=== PATIENT | female | born 1960 | race Caucasian/White ===

== ENCOUNTER 2020-03-30 13:43 | Inpatient (IN) | payer BC, OTHER ==
[2020-03-30] MEDS ORDERED: RSI MEDICATION KIT IV ONE (13:49)
[2020-03-30] MEDS ORDERED: NA CHLORIDE 0.9% 1,000 ML ONE ×2 (13:49→16:47)
[2020-03-30 13:56] LABS: Arterial Blood Carboxyhemoglob 0.9 % (0-1.5); Blood O2 Saturation 99.8 % (92-98.5)
[2020-03-30 14:16] LABS: Absolute Lymphocytes (CBC) 0.6 K/uL (0.7-4.9); Basophils % 0.4 % (0-1.3); Hematocrit 29.4 % (36.0-45.0); Lymphocytes % 6.4 % (15.3-44.8); MPV 7.9 fL (7.6-11.3); RBC Red Blood Cell Count 3.36 M/uL (3.86-4.86)
[2020-03-30 14:21] LABS: Protime INR 1.23
--- NOTE | 2020-03-30 14:33 | RAD REPORT ---
EXAM DESCRIPTION: CT - Head Brain Wo Cont - 03/30/2020 2:26 pm CLINICAL HISTORY: AMS COMPARISON: No comparisons TECHNIQUE: Axial 5 mm thick images of the head were obtained without IV contrast. All CT scans are performed using dose optimization technique as appropriate and may include automated exposure control or mA/KV adjustment according to patient size. FINDINGS: No intracranial hemorrhage, mass, edema or shift of mid-line structures. No acute infarcti on changes seen. No abnormal extra-axial fluid collections. Ventricles are asymmetric as a normal george iant. Mastoid air cells and visualized portions of the paranasal sinuses are clear. No acute bony findings. IMPRESSION: Negative non-contrast CT head examination for acute or significant finding.
--- NOTE | 2020-03-30 14:35 | RAD REPORT ---
EXAM DESCRIPTION: RAD - Chest Single View - 03/30/2020 2:29 pm CLINICAL HISTORY: AMS COMPARISON: June 2010 TECHNIQUE: AP portable chest image was obtained 03/30/2020 2:29 pm . FINDINGS: Lung volumes are low. Retrocardiac left base assessment is very limited. Infiltrate and at electasis cannot be excluded. Perihilar markings are prominent. Peribronchial thickening seen. Assess ment is limited given the very low lung volumes. Heart size is normal. No measurable pleural effusion and no pneumothorax. No acute bony abnormality seen. No acute aortic findings suspected. IMPRESSION: Limited exam shows prominent perihilar interstitial pattern. A viral infiltrate or interstitial edema cannot be excluded. Infiltrate at the left base also cannot be excluded.
[2020-03-30 14:42] LABS: Albumin 2.9 g/dL (3.4-5.0); Bilirubin Direct 0.1 mg/dL (0-0.2); Bilirubin Total 0.3 mg/dL (0.2-1.0); Potassium 3.1 mmol/L (3.5-5.1); Protein, Total 6.3 g/dL (6.4-8.2); Troponin (Emerg Dept Use Only) 0.04 ng/mL (0.0-0.045)
[2020-03-30 14:43] LABS: Platelet Estimate ADEQ; White Blood Cell Scan OK (OK)
[2020-03-30 14:44] LABS: Blood Morphology Comment NOT SEEN (NOT SEEN)
[2020-03-30 15:02] LABS: Barbiturates NEGATIVE (NEGATIVE); Benzodiazepines NEGATIVE (NEGATIVE); Cocaine NEGATIVE (NEGATIVE); METHAMPHETAM NEGATIVE (NEGATIVE); Methadone NEGATIVE (NEGATIVE); Opiates NEGATIVE (NEGATIVE); Phencyclidine NEGATIVE (NEGATIVE); THC Cannibis NEGATIVE (NEGATIVE)
--- NOTE | 2020-03-30 15:45 | EDPHYS ---
Physician Documentation [facility] Name: Michelle Villegas Age: 59 yrs Sex: Female : 1960 Arrival Date: 03/30/2020 Time: 13:45 Bed 3 Private MD: ED Physician Tera Gonzales HPI: 03/30 14:28 This 59 yrs old Female presents to ER via EMS with complaints of Altered rn Mental Status. 14:28 The patient presents with decreased responsiveness. Onset: The symptoms/episode rn began/occurred at an unknown time. 14:29 Possible causes: unknown. Current symptoms: In the emergency department the patient's rn symptoms are unchanged from the initial presentation. It is unknown whether or not the patient has had similar symptoms in the past. Last seen normal last night by , found today unresponsive, laying on full body heating pad, temp 106, tachycardic, not moving extremities, unknown if trauma. Patient opens eyes and mumbles. Given IV fluids and ice packs by EMS, now temp 103. . Historical: - Allergies: 13:58 No Known Allergies; iw - Home Meds: 13:58 Lyrica 150 mg Oral 2 times per day [Active]; cyclobenzaprine 10 mg Oral tab 1 tab 3 iw times per day [Active]; nortriptyline 50 mg Oral cap 1 cap 3 times per day [Active]; Percocet 5-325 mg Oral tab three times a day [Active]; fentanyl 25 mcg/hr Topical pt72 1 patch every 72 hours [Active]; topiramate 100 mg oral tab 2 times per day [Active]; zolpidem 10 mg Oral tab 1 tab once daily [Active]; Zyrtec 10 mg Oral chew 1 tab once daily [Active]; - Immunization history:: Adult Immunizations up to date. - Social history:: Smoking status: unknown. - Family history:: not pertinent. - Hospitalizations: : No recent hospitalization is reported. ROS: 14:29 Unable to obtain ROS due to altered mental status. rn Exam: 14:29 Constitutional: This is a well developed, well nourished patient who is awake, rn somnolent Head/Face: Normocephalic, atraumatic. Eyes: Pupils equal round and reactive to light, no nystagmus Cardiovascular: Tachycardic, regular Respiratory: Tachypneic Abdomen/GI: soft, non-tender Skin: Warm, dry, no cellulitis, + superficial garcia to back torso, back of arms, back of legs. MS/ Extremity: Pulses equal, no cyanosis. Neuro: Awake, follows some commands, difficult to interpret speech, sensation to pain intact and some movement to legs, no purposeful movement in arms. Vital Signs: 13:48 BP 135 / 117; Pulse 114; Resp 28 S; Temp 103.3(TE); Pulse Ox 99% on Non-rebreather mask;iw 13:57 Weight 100 kg; em 16:30 BP 86 / 53; Pulse 88; Resp 18; Temp 98.7(C); Pulse Ox 97% on 2 lpm NC; hb 17:23 BP 103 / 66; Pulse 66; Resp 14; Pulse Ox 95% on 2 lpm NC; hb 18:13 BP 91 / 57; Pulse 80; Resp 15; Pulse Ox 97% on 2 lpm NC; hb 18:51 BP 109 / 70; Pulse 81; Resp 15; Pulse Ox 96% on 2 lpm NC; hb 19:00 BP 103 / 69; Pulse 86; Resp 15 S; Temp 97.7(C); Pulse Ox 100% on 2 lpm NC; rv 19:30 BP 115 / 68; Pulse 80; Resp 14; Temp 97.7(C); Pulse Ox 100% on 2 lpm NC; rv 20:15 BP 99 / 64; Pulse 74; Resp 16; Temp 97.6(C); Pulse Ox 100% on 2 lpm NC; rv [place] Coma Score: 19:00 Eye Response: to pain(2). Verbal Response: inappropriate words(3). Motor Response: rv localizes pain(5). Total: 10. 20:47 Eye Response: to pain(2). Verbal Response: inappropriate words(3). Motor Response: rv localizes pain(5). Total: 10. MDM: 13:46 Patient medically screened. rn 15:42 Differential Diagnosis: CVA, electrolyte abnormality, hypoglycemia, intracranial bleed, rn overdose, seizure, sepsis, TIA, UTI, volume depletion. Data reviewed: vital signs, nurses notes, lab test result(s), EKG, radiologic studies, CT scan, plain films, and as a result, I will admit patient. Counseling: I had a detailed discussion with the patient and/or guardian regarding: the historical points, exam findings, and any diagnostic results supporting the discharge/admit diagnosis, lab results, radiology results, the need for further work-up and treatment in the hospital. Response to treatment: the patient's symptoms have mildly improved after treatment, and as a result, I will admit patient. Admission orders: after a detailed discussion of the patient's condition and case, the admit orders are written by me. ED course: Pt more alert, temperature downtrending, ct head neg, CPK normal, admitted for observation to Dr. Duckworth. Most likely overmedicated and temp 2/2 heating blanket. . 03/30 13:49 Order name: ABG rn 03/30 13:49 Order name: Urine Culture rn 03/30 13:49 Order name: Basic Metabolic Panel; Complete Time: 15: rn 03/30 13:49 Order name: Blood Culture Adult (2) rn 03/30 13:49 Order name: CBC with Diff; Complete Time: 15: rn 03/30 13:49 Order name: CPK; Complete Time: 15: rn 03/30 13:49 Order name: Lactate; Complete Time: 15: rn 03/30 13:49 Order name: LFT's; Complete Time: 15: rn 03/30 13:49 Order name: Lipase; Complete Time: 15:09 rn 03/30 13:49 Order name: Procalcitonin; Complete Time: 15:31 rn 03/30 13:49 Order name: Protime (+inr); Complete Time: 15: rn 03/30 13:49 Order name: Ptt, Activated; Complete Time: 15: rn 03/30 13:49 Order name: Troponin (emerg Dept Use Only); Complete Time: 15: rn 03/30 13:49 Order name: Urine Microscopic Only; Complete Time: 16:32 rn 03/30 13:49 Order name: Chest Single View XRAY; Complete Time: 15:09 rn 03/30 13:49 Order name: Urine Drug Screen; Complete Time: 15:09 rn 03/30 14:44 Order name: CBC Smear Scan; Complete Time: 15:09 EDMS 03/30 15:11 Order name: COVID-19 rn 03/30 15:49 Order name: Urine Dipstick--Ancillary (enter results); Complete Time: 16:32 bd 03/30 16:06 Order name: CBC with Automated Diff EDMS 03/30 16:06 Order name: CBC with Automated Diff EDMS 03/30 16:06 Order name: Comprehensive Metabolic Panel EDMS 03/30 16:06 Order name: Comprehensive Metabolic Panel EDMS 03/30 16:06 Order name: Creatine Phosphokinase EDMS 03/30 16:06 Order name: Creatine Phosphokinase EDMS 03/30 16:06 Order name: Protime (+INR) EDMS 03/30 16:06 Order name: Protime (+INR) EDMS 03/30 16:06 Order name: PTT, Activated Partial Thromb EDMS 03/30 16:06 Order name: PTT, Activated Partial Thromb EDMS 03/30 18:16 Order name: SARS-COV-2 RT PCR; Complete Time: 18:29 EDMS 03/30 13:49 Order name: Accucheck; Complete Time: 14:21 rn 03/30 13:49 Order name: Cardiac monitoring; Complete Time: 14:21 rn 03/30 13:49 Order name: EKG - Nurse/Tech; Complete Time: 18:21 rn 03/30 13:49 Order name: IV Saline Lock - Large Bore; Complete Time: 14:21 rn 03/30 13:49 Order name: Labs collected and sent; Complete Time: 14:21 rn 03/30 13:49 Order name: O2 Per Protocol; Complete Time: 14:21 rn 03/30 13:49 Order name: O2 Sat Monitoring; Complete Time: 14:21 rn 03/30 13:49 Order name: Urine Dipstick-Ancillary (obtain specimen); Complete Time: 15:19 rn 03/30 13:49 Order name: CT Head Brain wo Cont; Complete Time: 15:09 rn 03/30 14:22 Order name: Alcaraz; Complete Time: 14:22 hb 03/30 16:06 Order name: CONS Pharmacy Consult EDNE 03/30 16:06 Order name: CONS Physician Consult EDNE 03/30 16:06 Order name: Regular EDMS Administered Medications: 14:21 Drug: NS 0.9% (30 ml/kg) 30 ml/kg Route: IV; Rate: bolus; Site: right antecubital; hb 15:30 Follow up: Response: No adverse reaction; IV Status: Completed infusion; IV Intake: hb 3000ml 16:40 Drug: NS 0.9% 1000 ml Route: IV; Rate: 1000 ml; Site: right antecubital; em 17:35 Follow up: Response: No adverse reaction; IV Status: Completed infusion; IV Intake: hb 1000ml 16:40 Drug: Rocephin 1 grams Route: IV; Rate: calculated rate; Site: right antecubital; em 17:15 Follow up: Response: No adverse reaction hb Disposition: 15:42 Critical Care:. rn Disposition: 03/30/20 15:44 Hospitalization ordered by Refugio Duckworth for Observation. Preliminary diagnosis are Hyperthermia, Altered mental status, unspecified. - Bed requested for Telemetry/MedSurg (observation). - Status is Observation. jb4 - Condition is Stable. - Problem is new. - Symptoms have improved. Critical care time excluding procedures: 15:42 Critical care time: Bedside Care: 25 minutes, Consultation: 5 minutes, Family rn Intervention: 5 minutes. Total time: 35 minutes Signatures: Dispatcher [employer] Carol Chen Edgar, RN Louisa Mireles RN RN iw Nieto, Roman, MD MD rn Baxter, Heather, RN RN hb Bryson, James, RN RN jb4 Corrections: (The following items were deleted from the chart) 18:36 15:44 Hospitalization Ordered by Refugio Duckworth MD for Observation. Preliminary bd diagnosis is Hyperthermia; Altered mental status, unspecified. Bed requested for Telemetry/MedSurg (observation). Status is Observation. Condition is Stable. Problem is new. Symptoms have improved. rn 20:34 18:36 03/30/2020 15:44 Hospitalization Ordered by Refugio Duckworth MD for Observation. jb4 Preliminary diagnosis is Hyperthermia; Altered mental status, unspecified. Bed requested for Telemetry/MedSurg (observation). Status is Observation. Condition is Stable. Problem is new. Symptoms have improved. bd
--- NOTE | 2020-03-30 15:45 | ER ---
Nurse's Notes [facility] Name: Michelle Villegas Age: 59 yrs Sex: Female : 1960 Arrival Date: 03/30/2020 Time: 13:45 Bed 3 Private MD: Diagnosis: Hyperthermia;Altered mental status, unspecified Presentation: 03/30 13:45 Chief complaint: EMS states: pt was found unresponsive by , pt was lying on full iw body heating pad, last normal was sometime last night, rectal temp was 106, now responsive to pain, has burn delgadillo to back of her legs, back of arms, back and neck area. Risk Assessment: Do you want to hurt yourself or someone else? Patient reports no desire to harm self or others. 13:45 Method Of Arrival: EMS: [facility] iw 13:45 Acuity: BONY 2 iw 14:00 Coronavirus screen: Client presents with at least one sign or symptom that may indicate hb coronavirus-19. Standard/surgical mask placed on the client. Provider contacted for isolation considerations. 14:00 Ebola Screen: Unable to complete the Ebola screening because: Patient is unresponsive. hb Initial Sepsis Screen: Does the patient meet any 2 criteria? Temp <36.0*C (96.8*F)) or > 38.3*C (100.9*F). Altered Mental Status. Yes Does the patient have a suspected source of infection? No. Patient's initial sepsis screen is negative. Onset of symptoms is unknown. Historical: - Allergies: 13:58 No Known Allergies; iw - Home Meds: 13:58 Lyrica 150 mg Oral 2 times per day [Active]; cyclobenzaprine 10 mg Oral tab 1 tab 3 iw times per day [Active]; nortriptyline 50 mg Oral cap 1 cap 3 times per day [Active]; Percocet 5-325 mg Oral tab three times a day [Active]; fentanyl 25 mcg/hr Topical pt72 1 patch every 72 hours [Active]; topiramate 100 mg oral tab 2 times per day [Active]; zolpidem 10 mg Oral tab 1 tab once daily [Active]; Zyrtec 10 mg Oral chew 1 tab once daily [Active]; - Immunization history:: Adult Immunizations up to date. - Social history:: Smoking status: unknown. - Family history:: not pertinent. - Hospitalizations: : No recent hospitalization is reported. Screenin:23 Abuse screen: Denies threats or abuse. Denies injuries from another. Nutritional hb screening: No deficits noted. Tuberculosis screening: No symptoms or risk factors identified. Fall Risk Total Terrell Fall Scale indicates High Risk Score (45 or more points). Fall prevention measures have been instituted. Side Rails Up X 2 Placed Close to Nursing Station Frequent Obs/Assessments Occuring As available patient and family educated on Fall Prevention Program and Strategies. Assessment: 14:00 General: Appears in no apparent distress. Behavior is obtunded. Pain: Unable to use hb pain scale. FLACC scale score is 0 out of 10. Neuro: Level of Consciousness is obtunded. Cardiovascular: Capillary refill < 3 seconds Patient's skin is warm and dry. Rhythm is sinus tachycardia. Respiratory: Airway is patent Respiratory effort is even, unlabored, Respiratory pattern is regular, symmetrical. GI: No signs and/or symptoms were reported involving the gastrointestinal system. : No signs and/or symptoms were reported regarding the genitourinary system. EENT: No signs and/or symptoms were reported regarding the EENT system. Derm: Skin is pink, warm \T\ dry. liner second degree garcia noted to back and upper legs. Musculoskeletal: No signs and/or symptoms reported regarding the musculoskeletal system. 15:00 Reassessment: Pt remains obtunded and hypotensive, NS infusing at this time, Dr. Janet dickey aware. at bedside reports history of fentanyl patch misuse, pt entire body checked for fentanyl patches with 's assistance, none found. 16:00 Reassessment: Pt remains obtunded, BP slowly improving. remains at bedside. hb 17:00 Reassessment: Patient appears in no apparent distress at this time. No changes from hb previously documented assessment. Admission ordered, awaiting COVID results and room assignment at this time. 18:13 Reassessment: Patient appears in no apparent distress at this time. No changes from hb previously documented assessment. Vital Signs: 13:48 BP 135 / 117; Pulse 114; Resp 28 S; Temp 103.3(TE); Pulse Ox 99% on Non-rebreather mask;iw 13:57 Weight 100 kg; em 16:30 BP 86 / 53; Pulse 88; Resp 18; Temp 98.7(C); Pulse Ox 97% on 2 lpm NC; hb 17:23 BP 103 / 66; Pulse 66; Resp 14; Pulse Ox 95% on 2 lpm NC; hb 18:13 BP 91 / 57; Pulse 80; Resp 15; Pulse Ox 97% on 2 lpm NC; hb 18:51 BP 109 / 70; Pulse 81; Resp 15; Pulse Ox 96% on 2 lpm NC; hb 19:00 BP 103 / 69; Pulse 86; Resp 15 S; Temp 97.7(C); Pulse Ox 100% on 2 lpm NC; rv 19:30 BP 115 / 68; Pulse 80; Resp 14; Temp 97.7(C); Pulse Ox 100% on 2 lpm NC; rv 20:15 BP 99 / 64; Pulse 74; Resp 16; Temp 97.6(C); Pulse Ox 100% on 2 lpm NC; rv Giancarlo Coma Score: 19:00 Eye Response: to pain(2). Verbal Response: inappropriate words(3). Motor Response: rv localizes pain(5). Total: 10. 20:47 Eye Response: to pain(2). Verbal Response: inappropriate words(3). Motor Response: rv localizes pain(5). Total: 10. ED Course: 13:45 Patient arrived in ED. iw 13:46 Tera Gonzales MD is Attending Physician. rn 13:48 Triage completed. iw 13:53 Arm band placed on. iw 14:12 Radiology exam delayed due to nurse to call when patient is ready for CT exam. vm2 14:12 Missed attempt(s): 20 gauge in left antecubital area. Bleeding controlled, band aid hb applied, catheter tip intact. 14:14 Missed attempt(s): 20 gauge in left forearm. Bleeding controlled, band aid applied, hb catheter tip intact. 14:15 Inserted saline lock: 24 gauge in left hand, using aseptic technique. hb 14:21 Chel Lamar RN is Primary Nurse. hb 14:22 Patient has correct armband on for positive identification. Placed in gown. Bed in low hb position. Call light in reach. Side rails up X2. 14:25 CT Head Brain wo Cont In Process Unspecified. EDMS 14:30 Chest Single View XRAY In Process Unspecified. EDMS 15:44 Refugio Duckworth MD is Hospitalizing Provider. rn 20:49 No provider procedures requiring assistance completed. Inserted saline lock: 18 gauge rv in right antecubital area, using aseptic technique. IV is patent, with fluids infusing freely, with good blood return, Patient admitted, IV remains in place. Administered Medications: 14:21 Drug: NS 0.9% (30 ml/kg) 30 ml/kg Route: IV; Rate: bolus; Site: right antecubital; hb 15:30 Follow up: Response: No adverse reaction; IV Status: Completed infusion; IV Intake: hb 3000ml 16:40 Drug: NS 0.9% 1000 ml Route: IV; Rate: 1000 ml; Site: right antecubital; em 17:35 Follow up: Response: No adverse reaction; IV Status: Completed infusion; IV Intake: hb 1000ml 16:40 Drug: Rocephin 1 grams Route: IV; Rate: calculated rate; Site: right antecubital; em 17:15 Follow up: Response: No adverse reaction hb Intake: 15:30 IV: 3000ml; Total: 3000ml. hb 17:35 IV: 1000ml; Total: 4000ml. hb Outcome: 15:44 Decision to Hospitalize by Provider. rn 20:34 Patient left the ED. jb4 20:49 Admitted to Med/surg accompanied by nurse, via stretcher, room 203, Other SBAR Report rv called to GAYLA MORROW 20:49 Condition: stable 20:49 Instructed on the need for admit. Signatures: Dispatcher [employer] Michael Castaneda RN RN Louisa Ponce RN RN Tera Gonzales MD MD rn Baxter, Heather, RN RN Pola Cevallos RN RN Xena Cervantes [facility] Dinesh Pace RN RN rv Corrections: (The following items were deleted from the chart) 18:14 16:30 BP 86 / 53; Pulse 88bpm; Resp 18bpm; Pulse Ox 97% RA; Temp 98.7F Catheter; em hb 18:14 17:23 BP 103 / 66; Pulse 66bpm; Resp 14bpm; Pulse Ox 100% RA; hb hb
[2020-03-30] MEDS ORDERED: ONDANSETRON 4 MG/2 ML VIAL IV PRN (16:02)
[2020-03-30] MEDS ORDERED: ACETAMINOPHEN 500 MG TAB PO PRN (16:02)
[2020-03-30 16:14] LABS: Urine Blood 1+ (NEG); Urine Glucose NEGATIVE (NEG); Urine Protein NEGATIVE (NEG)
[2020-03-30 16:27] LABS: Urine Bacteria >50 /HPF (<20); Urine RBC <5 /HPF (NONE SEEN)
[2020-03-30 16:28] LABS: Urine Culture Reflex Order NOT NEEDED
[2020-03-30] MEDS ORDERED: CEFTRIAXONE/SWI 1gm 1 GM/10 ML SYR ONE (16:47)
[2020-03-30] MEDS: D5 0.45 NS 1,000 ML IV SCH (21:22)
[2020-03-30 23:28] VITALS: O2SAT 95; BMI 30.2
[2020-03-31] MEDS: D5 0.45 NS 1,000 ML IV SCH ×4 (05:36→22:00)
[2020-03-31 06:25] LABS: Absolute Lymphocytes (CBC) 1.3 K/uL (0.7-4.9); Basophils % 0.7 % (0-1.3); Hematocrit 34.8 % (36.0-45.0); Lymphocytes % 14.9 % (15.3-44.8); MPV 7.9 fL (7.6-11.3); RBC Red Blood Cell Count 3.97 M/uL (3.86-4.86)
[2020-03-31 06:32] LABS: Albumin 3.2 g/dL (3.4-5.0); Bilirubin Total 0.4 mg/dL (0.2-1.0); Potassium 3.5 mmol/L (3.5-5.1); Protein, Total 7.1 g/dL (6.4-8.2)
[2020-03-31 06:36] LABS: Protime INR 1.05
--- NOTE | 2020-03-31 08:47 | P.HP ---
Certification for Inpatient Patient admitted to: Observation With expected LOS: <2 Midnights Patient will require the following post-hospital care: None Practitioner: I am a practitioner with admitting privileges, knowledge of patient current condition, hospital course, and medical plan of care. Services: Services provided to patient in accordance with Admission requirements found in Title 42 Section 412.3 of the Code of Federal Regulations Patient History Date of Service: 03/30/20 Reason for admission: Hyperthermia; altered mental status History of Present Illness: Patient is a 59-year-old female who came to the hospital with altered mentation. She was hyperthermic with a temperature of a 106. She is not apparently laying down on some electric blanket which she has done for quite a while. However, she recently getting the blanket and she left the temperature up 5. There was also concern that there was depression because her has recently left her. However, she denies being suicidal. Her temperature is down in the emergency room. It currently is 101 when I see her. She does have some first-degree garcia on her back. It looks like the outline of the electric wires that were in the electric blanket. She wants to go home from the emergency room. She did have a fentanyl patch on which EMS had removed. Will continue to monitor her closely. Hopefully we can discharge her in the morning Allergies No Known Drug Allergies Allergy (Verified 03/30/20 20:42) none soft -shelled crabs Allergy (Uncoded 03/30/20 20:42) Itching/Hives/Rash Home Medications: Baclofen 1 tab PO BID 03/30/20 Celecoxib 1 tab PO BID 03/30/20 Cetirizine HCl [Zyrtec] 1 tab PO DAILY 03/30/20 Cyclobenzaprine [Flexeril*] 1 tab PO BEDTIME 03/30/20 Hydrocodone/Acetaminophen [Amo 5-325 Tablet] 1 tab PO TID PRN 03/30/20 Nortriptyline HCl [Pamelor] 3 tab PO BEDTIME 03/30/20 Polyethylene Glycol 3350 [Miralax] 17 gm PO SEECOM 03/30/20 Pregabalin 1 tab PO BID 03/30/20 Rosuvastatin [Crestor*] 1 tab PO BEDTIME 03/30/20 Topiramate [Topamax*] 1 tab PO BID 03/30/20 Zolpidem Tartrate [Ambien] 1 tab PO BEDTIME 03/30/20 fentaNYL [Fentanyl] 1 each TD Q72H 03/30/20 - Past Medical/Surgical History Has patient received pneumonia vaccine in the past: No Diabetic: No -: hypoglycemic -: hld -: insomnia -: chronic pain -: fibromyalgia -: osteoarthritis -: chronic allergies -: migraines -: outlay thoracic surgery bilaterally -: left brachial decompression -: bilateral breast reduction - Family History none Notes: does not know. pt is lethargic; confused grandmother Medical History: Diabetes - Social History Smoking Status: Never smoker Alcohol use: No CD- Drugs: Yes Place of Residence: Home Review of Systems 10-point ROS is otherwise unremarkable Physical Examination - Vital Signs Temperature: 97.3 F Blood Pressure: 108/61 Pulse: 84 Respirations: 18 Pulse Ox (%): 96 - Physical Exam General: Alert, In no apparent distress, Oriented x3 HEENT: Atraumatic, PERRLA, Mucous membr. moist/pink, EOMI, Sclerae nonicteric Neck: Supple, 2+ carotid pulse no bruit, No LAD, Without JVD or thyroid abnormality Respiratory: Clear to auscultation bilaterally, Normal air movement Cardiovascular: Regular rate/rhythm, Normal S1 S2, No murmurs Gastrointestinal: Normal bowel sounds, Soft and benign, Non-distended, No tenderness Musculoskeletal: No clubbing, No swelling, No tenderness Integumentary: Other (Skin breakdown on the [id number] garcia) Neurological: Normal speech, Normal tone, Sensation intact, Cranial nerves 3-12 intact, Abnormal gait, Abnormal strength Lymphatics: No axilla or inguinal lymphadenopathy - Studies Laboratory Data (last 24 hrs) 03/30/20 14:03: PT 14.4 H, INR 1.23, APTT 36.1 03/30/20 14:03: WBC 8.9, Hgb 10.0 L, Hct 29.4 L, Plt Count 243 03/30/20 14:03: Sodium 143, Potassium 3.1 L, BUN 22 H, Creatinine 1.10, Glucose 149 H, Total Bilirubin 0.3, AST 14 L, ALT 16, Alkaline Phosphatase 73, Lipase 52 L Assessment & Plan - Problems (Diagnosis) (1) Altered mental status Current Visit: Yes Status: Acute (2) Hyperthermia Current Visit: Yes Status: Acute (3) Chronic pain syndrome Current Visit: Yes Status: Acute (4) Fibromyalgia Current Visit: Yes Status: Acute - Plan Plan: 1. IV fluids 2. Silvadene 3. Monitor vitals and temperature closely 4. Monitor neuro status closely 5. Physical therapy evaluation 6. IV antibiotics 7. GI and DVT prophylaxis Discharge Plan: Home Plan to discharge in: Greater than 2 days - Advance Directives Does patient have a Living Will: No Does patient have a Durable POA for Healthcare: No - Code Status/Comfort Care Code Status Assessed: Yes Code Status: Full Code Critical Care: No Time Spent Managing PTS Care (In Minutes): 45
[2020-03-31] MEDS ORDERED: VANCOMYCIN 1.5 GM in NA CHLORIDE 0.9% 500 ML IVPB SCH (09:00)
[2020-03-31] MEDS: Levofloxacin500mg IV 500 MG/100 ML BAG IV SCH (09:02)
[2020-03-31] MEDS: VANCOMYCIN 1.25 GM in NA CHLORIDE 0.9% 250 ML IVPB SCH (10:21)
[2020-03-31] MEDS: MORPHINE 2 MG/ML SYR IV PRN ×3 (10:26→23:55)
[2020-03-31] MEDS ORDERED: HYDROCODONE/APAP 5/325 MG TAB PO PRN (16:32)
[2020-03-31] MEDS ORDERED: HOME MED 1 EA UNK (Fentanyl [Fentanyl] 25 MCG) TD SCH (16:45)
[2020-03-31] MEDS ORDERED: FENTANYL 25 MCG/PATCH TD SCH (18:00)
--- NOTE | 2020-03-31 19:00 | P.PN ---
Subjective Date of Service: 03/31/20 Chief Complaint: Hyperthermia; altered mental status Patient is doing much better at this time. Symptoms have improved. However, patient is bacteremic at this time. Awaiting culture results. Review of Systems 10-point ROS is otherwise unremarkable Physical Examination - Vital Signs Temperature: 97.8 F Blood Pressure: 150/82 Pulse: 91 Respirations: 18 Pulse Ox (%): 94 - Physical Exam General: Alert, In no apparent distress, Oriented x3 Respiratory: Clear to auscultation bilaterally, Normal air movement Cardiovascular: Regular rate/rhythm, Normal S1 S2, No murmurs Gastrointestinal: Normal bowel sounds, Soft and benign, Non-distended, No tenderness Musculoskeletal: No clubbing, No swelling Neurological: Sensation intact, Cranial nerves 3-12 intact - Studies Laboratory Data (last 24 hrs) 03/31/20 06:01: Sodium 144, Potassium 3.5, BUN 13, Creatinine 0.69, Glucose 124 H, Total Bilirubin 0.4, AST 17, ALT 20, Alkaline Phosphatase 77 03/31/20 06:01: PT 12.4, INR 1.05, APTT 36.0 H 03/31/20 06:01: WBC 8.5, Hgb 11.9 L, Hct 34.8 L D, Plt Count 243 Medications List Reviewed: Yes Assessment & Plan - Problems (Diagnosis) (1) Altered mental status Status: Acute (2) Hyperthermia Status: Acute (3) Chronic pain syndrome Status: Acute (4) Fibromyalgia Status: Acute (5) Bacteremia Status: Acute - Plan Plan: 1. IV fluids 2. Silvadene to the back where the patient has 1st degree garcia 3. Monitor vitals and temperature closely 4. Monitor neuro status closely 5. Physical therapy evaluation 6. IV antibiotics for bacteremia of gram-positive coccus side. Awaiting ID & sensitivity 7. GI and DVT prophylaxis Discharge Plan: Home Plan to discharge in: Greater than 2 days - Advance Directives Does patient have a Living Will: No Does patient have a Durable POA for Healthcare: No - Code Status/Comfort Care Code Status: Full Code Critical Care: No Time Spent Managing PTS Care (In Minutes): 35
[2020-03-31] MEDS ORDERED: ROSUVASTATIN 10 MG TAB PO SCH (21:00)
[2020-03-31] MEDS ORDERED: CYCLOBENZAPRINE 10 MG TAB PO SCH (21:00)
[2020-03-31] MEDS ORDERED: NORTRIPTYLINE HCL PO SCH (21:00)
[2020-03-31] MEDS ORDERED: PREGABALIN PO SCH (21:00)
[2020-03-31] MEDS ORDERED: ZOLPIDEM TARTRATE 5 MG TABLET PO SCH (21:00)
[2020-03-31] MEDS ORDERED: TOPIRAMATE 100 MG TAB PO SCH (21:00)
[2020-03-31] MEDS ORDERED: NORTRIPTYLINE HCL 25 MG CAP PO SCH ×2 (21:00)
[2020-03-31] MEDS ORDERED: CELECOXIB PO SCH (21:00)
[2020-03-31] MEDS: TOPIRAMATE 100 MG TAB PO SCH (21:04)
[2020-03-31] MEDS: CELECOXIB 100 MG CAPSULE PO SCH (21:06)
[2020-03-31] MEDS: PREGABALIN 150 MG CAP PO SCH (21:07)
[2020-03-31] MEDS: PREGABALIN 50 MG CAP PO SCH (21:07)
[2020-03-31] MEDS: BACLOFEN 10 MG TAB PO SCH (21:07)
--- NOTE | 2020-03-31 22:46 | CON ---
Date of Consultation: 03/31/2020 Reason For Consultation: Altered mental status, hyperthermia. History Of Present Illness: A 59-year-old lady known to myself. We see her for migraine headaches. She has a history of fibromyalgia, and she has a history of chronic left arm weakness with workup pe rformed by a different physician felt to possibly have thoracic outlet syndrome and so she has had th oracic outlet syndrome surgery on that side. She sees Pain Management chronically. She is on chroni c narcotic analgesics. As noted, we see her for headaches at this juncture and we see her infrequent ly. She was brought to the emergency department with altered mental status. She fell asleep on an e lectric blanket and had a documented temperature of a 106 degrees. found her confused sleepi ng on the electric blanket with burn delgadillo on her back, neck, back over legs. She was admitted to [facility] given all of the aforementioned. At this juncture, she is back to baseline. CT scan of t he brain was unremarkable. Chest x-ray unremarkable. Labs unremarkable other than a urinary tract i nfection. She did have blood culture positive for gram positives in clusters and urinary tract infec tion 4+ gram-negative rods. COVID test was negative. Consultation was requested. Past Medical History: Chronic pain, migraines, fibromyalgia, hyperlipidemia. Medications: Ambien, MiraLAX, Zyrtec, fentanyl, Topamax, [place], Pamelor, Flexeril, Crestor, Lyrica. Allergies: NO MEDICATION ALLERGIES. Social History: . Does not smoke. The patient's does most of their necessary activi ties of daily living for maintaining household. Review of Systems: General: Chronically ill. Eyes: Negative. Ears, nose, Throat: Negative. Cardiovascular: Negative. Pulmonary: Negative. GI: Negative. : Urinary infection. Neurologic: As noted, left arm actually tends to have very prominent giveaway weakness. Psychiatric: As alluded. Endocrine: History of diabetes. Hematologic: Negative. Physical Examination: Vital Signs: On exam, she is afebrile now, pulse 91, respirations 18, blood pressure 150/82. General: She is a chronically ill lady lying in bed, poor eye contact. Heart: Sinus rhythm. LUNGS: Clear. Abdomen: Soft. Bowel sounds present. NEUROLOGIC: She is awake, alert, oriented to time, person, place, and situation. Pupils reactive. Ocular motion full. Visual romero full. Facial strength and sensation are normal. Tongue protrudes evenly. Soft palate elevates symmetrically bilaterally. Extremity strength is full despite her ena bility to volitionally lift the left upper extremity. Individual muscle testing is all normal. Sens ation is intact. Reflexes are 2/4 symmetric. Toes are downgoing. Cerebellar exam demonstrates no a taxia. Gait not tested. The patient normally ambulates with a walker. Pertinent Laboratory Data: Imaging as noted. White count 8.5, platelets normal, hemoglobin 11.9. C reatinine normal 0.69. Sodium normal. Carbon dioxide 21. UA; 1+ blood, nitrites positive, bacteria greater than 50. Drug screen negative. COVID negative. Impression: Hyperthermia, resolved, possibly from the use of the electric blanket as well as multipl e sedatives. Plan: We will decrease the nortriptyline and the topiramate as the can both contribute to elevate th e temperature. We will get down to 100 mg on the nortriptyline and 50 mg twice daily on the topirama te. Thank you for the consult. EDILBERTO/TERRELL Voice ID: [id number] Report ID: [id number]
[2020-04-01] MEDS: VANCOMYCIN 1.25 GM in NA CHLORIDE 0.9% 250 ML IVPB SCH (02:05)
[2020-04-01] MEDS: CELECOXIB 100 MG CAPSULE PO SCH (08:59)
[2020-04-01] MEDS ORDERED: POLYETHYL GLY 3350 17 GM/DOSE PO SCH (09:00)
[2020-04-01] MEDS: PREGABALIN 150 MG CAP PO SCH (09:00)
[2020-04-01] MEDS ORDERED: HOME MED 1 EA UNK (Cetirizine Hcl [Zyrtec] 1 TAB) PO SCH (09:00)
[2020-04-01] MEDS ORDERED: CETIRIZINE HCL 5 MG TABLET PO SCH (09:00)
[2020-04-01] MEDS: BACLOFEN 10 MG TAB PO SCH (09:01)
[2020-04-01] MEDS: PREGABALIN 50 MG CAP PO SCH (09:01)
[2020-04-01] MEDS: D5 0.45 NS 1,000 ML IV SCH (09:02)
[2020-04-01] MEDS: TOPIRAMATE 100 MG TAB PO SCH (09:08)
[2020-04-01] MEDS: Levofloxacin500mg IV 500 MG/100 ML BAG IV SCH (09:09)
[2020-04-01] MEDS: MORPHINE 2 MG/ML SYR IV PRN (11:41)
[2020-04-03 17:49] VITALS: BP 150/82; TEMP 97.8
--- NOTE | 2020-04-03 17:51 | P.DS ---
Discharge Date: 04/01/20 Disposition: AMA-LEFT AGAINST MEDICAL ADVIC Reason for Admission: Hyperthermia; altered mental status - Problems (1) Altered mental status Status: Acute (2) Hyperthermia Status: Acute (3) Chronic pain syndrome Status: Acute (4) Fibromyalgia Status: Acute (5) Bacteremia Status: Acute Brief History of Present Illness: Patient is a 59-year-old female who came to the hospital with altered mentation. She was hyperthermic with a temperature of a 106. She is not apparently laying down on some electric blanket which she has done for quite a while. However, she recently getting the blanket and she left the temperature up 5. There was also concern that there was depression because her has recently left her. However, she denies being suicidal. Her temperature is down in the emergency room. It currently is 101 when I see her. She does have some first-degree garcia on her back. It looks like the outline of the electric wires that were in the electric blanket. She wants to go home from the emergency room. She did have a fentanyl patch on which EMS had removed. Will continue to monitor her closely. Hopefully we can discharge her in the morning Hospital Course: Patient had been improving. We are waiting for ID and sensitivity. However, family did not want stay in the hospital any longer. Patient signed out against medical advice. Patient has 1st degree garcia that she will need to place Silvadene on the scan. At this time patient is stable for discharge home. Vital Signs/Physical Exam: Temp Pulse Resp BP Pulse Ox 97.8 F 91 H 18 150/82 H 94 04/03/20 17:49 04/03/20 17:49 04/03/20 17:49 04/03/20 17:49 04/03/20 17:49 General: Alert, In no apparent distress, Oriented x3 Laboratory Data at Discharge: WBC 8.5 K/uL (4.3-10.9) 03/31/20 06:01 Hgb 11.9 g/dL (12.0-15.0) L 03/31/20 06:01 Hct 34.8 % (36.0-45.0) L D 03/31/20 06:01 Plt Count 243 K/uL (152-406) 03/31/20 06:01 PT 12.4 SECONDS (9.2-12.8) 03/31/20 06:01 INR 1.05 03/31/20 06:01 APTT 36.0 SECONDS (21.7-34.4) H 03/31/20 06:01 Sodium 144 mmol/L (136-145) 03/31/20 06:01 Potassium 3.5 mmol/L (3.5-5.1) 03/31/20 06:01 BUN 13 mg/dL (7-18) 03/31/20 06:01 Creatinine 0.69 mg/dL (0.55-1.3) 03/31/20 06:01 Glucose 124 mg/dL (74-106) H 03/31/20 06:01 Total Bilirubin 0.4 mg/dL (0.2-1.0) 03/31/20 06:01 AST 17 U/L (15-37) 03/31/20 06:01 ALT 20 U/L (12-78) 03/31/20 06:01 Alkaline Phosphatase 77 U/L (45-117) 03/31/20 06:01 Lipase 52 U/L (73-393) L 03/30/20 14:03 Home Medications: Baclofen 1 tab PO BID 03/30/20 Celecoxib 1 tab PO BID 03/30/20 Cetirizine HCl [Zyrtec] 1 tab PO DAILY 03/30/20 Cyclobenzaprine [Flexeril*] 1 tab PO BEDTIME 03/30/20 Hydrocodone/Acetaminophen [[place] 5-325 Tablet] 1 tab PO TID PRN 03/30/20 Nortriptyline HCl [Pamelor] 3 tab PO BEDTIME 03/30/20 Polyethylene Glycol 3350 [Miralax] 17 gm PO SEECOM 03/30/20 Pregabalin 1 tab PO BID 03/30/20 Rosuvastatin [Crestor*] 1 tab PO BEDTIME 03/30/20 Topiramate [Topamax*] 1 tab PO BID 03/30/20 Zolpidem Tartrate [Ambien] 1 tab PO BEDTIME 03/30/20 fentaNYL [Fentanyl] 1 each TD Q72H 03/30/20 Patient Discharge Instructions: Patient left against medical advice Time spent managing pt's care (in minutes): 25
== END 2020-04-01 15:19 | disposition left against medical advice (07) | DRG 872 ==
LOC: ER 13:43 → ERHOLD 16:02 → 2ND 20:01 → OBSVTOIN 03-31 10:55
PROVIDERS: ADMIT Hospitalist; ATTEND Hospitalist
DX: A41.51 Sepsis due to Escherichia coli [E. coli] (principal); N39.0 Urinary tract infection, site not specified; G93.40 Encephalopathy, unspecified; G89.4 Chronic pain syndrome; M79.7 Fibromyalgia; E78.5 Hyperlipidemia, unspecified; F32.9 Major depressive disorder, single episode, unspecified; T21.14XA Burn of first degree of lower back, initial encounter; R50.9 Fever, unspecified; Z91.013 Allergy to seafood; Z53.29 Procedure and treatment not carried out because of patient's decision for other reasons; Z79.891 Long term (current) use of opiate analgesic; Z79.899 Other long term (current) drug therapy; Z20.828 Contact with and (suspected) exposure to other viral communicable diseases
CPT/HCPCS: 36415; 70450; 71045; 80048; 80053; 80076; 80307; 81003; 81015; 82550; 82805; 82947; 83605; 83690; 84145; 84484; 85025; 85610; 85730; 87040; 87077; 87086; 87088; 87186; 87205; 92523; 92610; 96361; 96365; 96375; 99285; G0378; J0696; J2270; J2405; J3370; J7030; J7050; J7799; U0003

== ENCOUNTER 2021-01-10 10:49 | Emergency (ER) | payer BC ==
--- NOTE | 2021-01-10 11:17 | RAD REPORT ---
EXAM DESCRIPTION: RAD - Chest Single View - 01/10/2021 11:06 am CLINICAL HISTORY: DYSPNEA COMPARISON: Chest Single View dated 03/30/2020; CHEST PA AND LAT 2 VIEW dated 07/02/2010 FINDINGS: Endotracheal tube above the gayathri in satisfactory position of the clavicular heads. Cardi omegaly. NG tube tip overlies the stomach. The tip is near the GE junction. Diffuse prominence of the pulmonary interstitium. No consolidative process identified. IMPRESSION: 1. Endotracheal tube in satisfactory position above the gayathri. The NG tube tip coils in the stomach and terminates near the gastroesophageal junction. Suggest retracting by 4 cm for more o ptimal positioning. 2. Diffuse increased interstitial markings may reflect vascular congestion but no alveolar edema or c onsolidative airspace disease identified.
[2021-01-10] MEDS ORDERED: NOREPINEPHRINE 4mg/D5W 250mL 0 MG/0 ML BAG IV ONE (11:20)
[2021-01-10] MEDS ORDERED: NA CHLORIDE 0.9% 2,000 ML ONE (11:44)
[2021-01-10 11:49] LABS: Basophils % 0.1 % (0-1.3); Hematocrit 49.8 % (36.0-45.0); Lymphocytes % 4.2 % (15.3-44.8); MPV 7.8 fL (7.6-11.3); RBC Red Blood Cell Count 5.49 M/uL (3.86-4.86)
[2021-01-10 11:55] LABS: Urine Blood Negative (Negative); Urine Glucose Negative (Negative); Urine Protein Negative (Negative); Urine Specific Gravity 1.015 (1.005-1.030); Urine pH 5.5 (5.0-7.0)
[2021-01-10] MEDS ORDERED: ACETAMINOPHEN 650MG/RECT SUPP PR ONE (11:57)
[2021-01-10] MEDS ORDERED: Magnesium Sulfate 2gm IVPB 2 G/50 ML BAG IV ONE (11:57)
[2021-01-10 12:04] LABS: Albumin 3.6 g/dL (3.4-5.0); Bilirubin Direct 0.3 mg/dL (0-0.2); Bilirubin Total 1.5 mg/dL (0.2-1.0); C-Reactive Protein 24.8 mg/L (<3.00); Protein, Total 7.8 g/dL (6.4-8.2); Troponin (Emerg Dept Use Only) 1.23 ng/mL (0.0-0.045)
[2021-01-10 12:06] LABS: Potassium 5.5 mmol/L (3.5-5.1)
[2021-01-10 12:07] LABS: Magnesium 6.9 mg/dL (1.8-2.4)
[2021-01-10 12:13] LABS: Barbiturates NEGATIVE (NEGATIVE); Benzodiazepines NEGATIVE (NEGATIVE); Cocaine NEGATIVE (NEGATIVE); METHAMPHETAM NEGATIVE (NEGATIVE); Methadone NEGATIVE (NEGATIVE); Opiates POSITIVE (NEGATIVE); Phencyclidine NEGATIVE (NEGATIVE); THC Cannibis NEGATIVE (NEGATIVE)
[2021-01-10 12:17] LABS: Protime INR 0.94
[2021-01-10 12:24] LABS: Urine Bacteria >50 /HPF (<20); Urine RBC <5 /HPF (NONE SEEN)
[2021-01-10] MEDS ORDERED: LORazepam 2 MG/ML VIAL ONE (12:29)
[2021-01-10 12:41] LABS: Blood Morphology Comment NOT SEEN (NOT SEEN); Platelet Estimate ADEQ
[2021-01-10 12:45] LABS: Arterial Blood Carboxyhemoglob 0.8 % (0-1.5); Blood Gas Oxyhemoglobin 96.7 % (94-97); Blood O2 Saturation 98.4 % (92-98.5)
[2021-01-10] MEDS ORDERED: FUROSEMIDE 40 MG/4 ML VIAL ONE (12:46)
--- NOTE | 2021-01-10 12:51 | RAD REPORT ---
EXAM DESCRIPTION: CT - Head C Spine Cap Wo Con - 01/10/2021 12:35 pm CLINICAL HISTORY: Trauma, head and neck injury. Chest, abdomen and pelvis pain. AMS, Hypercalcemia COMPARISON: No comparisons TECHNIQUE: CT head without contrast. CT cervical spine without contrast with coronal and sagittal reformatted images. CT chest, abdomen and pelvis without contrast with coronal and sagittal reformatted images of the spi ne. All CT scans are performed using dose optimization technique as appropriate and may include automated exposure control or mA/KV adjustment according to patient size. FINDINGS: CT HEAD WITHOUT CONTRAST: No intracranial hemorrhage, hydrocephalus or extra-axial fluid collection. No areas of brain edema o r midline shift. The paranasal sinuses and mastoids are clear. The calvarium is intact. CT CERVICAL SPINE WITHOUT CONTRAST: No fracture or subluxation. The prevertebral soft tissues are normal in thickness. CT CHEST, ABDOMEN, PELVIS WITHOUT CONTRAST: NOTE: Lack of contrast is a significant limitation in the assessment of trauma related findings. Spec ifically, solid organ, vascular and bowel evaluation is significantly limited. Enteric tube coils in the stomach. Endotracheal intubation is noted with tip above the gayathri.Airspac e opacity in both posterior lung bases has the appearance of atelectasis or infiltrate.No pneumothora x or pericardial/pleural fluid. No evidence of intra-abdominal visceral injury, free fluid or free air is seen within the above detai led limitations. There is quite significant distention of the colon which is impacted with a large am ount of stool. Alcaraz catheter decompresses the urinary bladder. Right-sided groin venous line is in a ppropriate location. No pelvic mass, free fluid or hematoma. No fractures. IMPRESSION: Mild opacities in both lung bases may represent atelectasis or aspiration. Severe fecal retention and colonic distention is present.
[2021-01-10] MEDS ORDERED: CEFTRIAXONE/SWI 1gm 2 GM/20 ML SYR ONE (13:21)
[2021-01-10] MEDS ORDERED: NA CHLORIDE 0.9% 50 ML ONE (13:21)
[2021-01-10] MEDS ORDERED: NOREPINEPHRINE 8 MG in Dextrose 5%-Water 500 ML IV PRN (13:53)
[2021-01-10] MEDS ORDERED: NOREPINEPHRINE 4mg/D5W 250mL 4 MG/250 ML BAG IV ONE (14:30)
--- NOTE | 2021-01-10 14:35 | ER ---
Nurse's Notes [facility] Name: Michelle Villegas Age: 60 yrs Sex: Female : 1960 Arrival Date: 01/10/2021 Time: 10:50 Bed 4 Private MD: Diagnosis: Severe sepsis with septic shock Presentation: 01/10 11:01 Chief complaint: EMS states: Toned out for unresponsive by , last known normal jl7 last, 25 mcg fentanyl patch on pt with several narcatics noted in the house, patch removed and 4 mg Narcan given, minimal response, pt intubated, NG tube placed, BP unreadable, low, Levophed started in route to right lower leg IO. Coronavirus screen: Client denies travel out of the [place] in the last 14 days. At this time, the client does not indicate any symptoms associated with coronavirus-19. Ebola Screen: No symptoms or risks identified at this time. Initial Sepsis Screen: Does the patient meet any 2 criteria? No. Patient's initial sepsis screen is negative. Does the patient have a suspected source of infection? No. Patient's initial sepsis screen is negative. Risk Assessment: Do you want to hurt yourself or someone else? Patient reports no desire to harm self or others. Onset of symptoms is unknown. Care prior to arrival: Oral intubation, Glucose check: 119. Transition of care: patient was not received from another setting of care. 11:01 Method Of Arrival: EMS: [facility] 7 11:01 Acuity: BONY 1 jl Historical: - Allergies: 11:08 No Known Allergies; jl7 - Home Meds: 11:08 cyclobenzaprine 10 mg Oral tab 1 tab 3 times per day [Active]; fentanyl 25 mcg/hr jl7 Topical pt72 1 patch every 72 hours [Active]; Lyrica 150 mg Oral 2 times per day [Active]; nortriptyline 50 mg Oral cap 1 cap 3 times per day [Active]; Percocet 5-325 mg Oral tab three times a day [Active]; topiramate 100 mg Oral tab 2 times per day [Active]; zolpidem 10 mg Oral tab 1 tab once daily [Active]; Zyrtec 10 mg Oral chew 1 tab once daily [Active]; - PMHx: 11:08 Chronic pain; jl7 - Immunization history:: Adult Immunizations unknown. - Social history:: Smoking status: unknown. Screenin:09 Abuse screen: Denies threats or abuse. Denies injuries from another. Nutritional jl7 screening: No deficits noted. Tuberculosis screening: No symptoms or risk factors identified. Fall Risk IV access (20 points). Total Terrell Fall Scale indicates High Risk Score (45 or more points). Fall prevention measures have been instituted. Side Rails Up X 2 Placed Close to Nursing Station Frequent Obs/Assessments Occuring Family Present and informed to notify staff if the need to leave the bedside As available patient and family educated on Fall Prevention Program and Strategies. Assessment: 11:10 Reassessment: ET Tube 7.0, 26 \\T\\lip. 14 NG. jl7 11:30 General: Appears distressed, Behavior is unresponsive. Pain: Unable to use pain scale. jd3 Patient is unresponsive. Neuro: Level of Consciousness is unresponsive, intubated. Cardiovascular: Heart tones present Rhythm is irregular. Respiratory: Airway via oral intubation Breath sounds are diminished bilaterally. GI: Abdomen is round distended, Abd is soft X 4 quads. Derm: Skin is intact, Skin is dry, Skin is pale, Skin temperature is hot. Musculoskeletal: No signs and/or symptoms reported regarding the musculoskeletal system. 12:30 Reassessment: No changes from previously documented assessment. Patient and/or family jd3 updated on plan of care and expected duration. Pain level reassessed. provider notified of blood pressure. pt appears more comfortable. 13:30 Reassessment: No changes from previously documented assessment. Patient and/or family jd3 updated on plan of care and expected duration. Pain level reassessed. 14:30 Reassessment: No changes from previously documented assessment. Patient and/or family jd3 updated on plan of care and expected duration. Pain level reassessed. 14:51 Reassessment: report given to Pamela MORROW at [facility]. jd3 15:02 Reassessment: No changes from previously documented assessment. Patient and/or family jd3 updated on plan of care and expected duration. Pain level reassessed. 15:55 Reassessment: No changes from previously documented assessment. Patient and/or family jd3 updated on plan of care and expected duration. Pain level reassessed. report given to life flight crew. Overdose: 15:56 [place] Suicide Severity Screening: "In the past month, have you wished you were jd3 or wished you could go to sleep and not wake up?" Patient responds "no." "In the past month, have you actually had any thoughts of killing yourself?" Patient responds "no." "In your lifetime, have you ever done anything, started to do anything, or prepared to do anything to end your life?" Patient responds "no.". Vital Signs: 11:01 BP 77 / 56; Pulse 136; Resp 29; Pulse Ox 96% ; Weight 72.57 kg; jl7 11:47 BP 90 / 72; Pulse 134; Resp 30; Temp 105; Pulse Ox 98% on ETT vent; jl7 12:00 BP 86 / 63; Pulse 121; Resp 25 A; Pulse Ox 97% on ETT vent; jd3 13:30 BP 87 / 61; Pulse 114; Resp 26 A; Pulse Ox 98% on ETT vent; jd3 14:00 BP 76 / 58; Pulse 114; Resp 24 A; Temp 104.7(C); Pulse Ox 98% on ETT vent; jd3 14:30 BP 80 / 55; Pulse 111; Resp 22 A; Temp 104.5(C); Pulse Ox 97% on ETT vent; jd3 Giancarlo Coma Score: 13:18 Eye Response: none(1). Verbal Response: none(1). Motor Response: none(1). Modifying jr8 Factors: Intubated. Total: 3. ED Course: 10:50 Patient arrived in ED. am2 10:56 Tony Carrillo PA is PHCP. jr8 10:56 Nicolás Amaya MD is Attending Physician. jr8 11:06 Chest Single View XRAY In Process Unspecified. EDMS 11:08 Triage completed. jl7 11:08 Arm band placed on right wrist. jl7 11:09 Patient has correct armband on for positive identification. Placed in gown. Bed in low jl7 position. Side rails up X2. wedding photographer on. Pulse ox on. NIBP on. 11:15 Assisted provider with central line placement. Set up central line tray. Triple lumen jd3 line placed in right femoral. Line placed by Tony FERRIS Placement verified by blood return, Dressed with Tape, Tegaderm, Blood was collected. Patient tolerated well. 11:45 Speci-cath kit inserted, using sterile technique, 16 Fr., specimen obtained. returned jd3 lexi urine. Patient tolerated well. 12:02 Chris Baires, ODALYS is Primary Nurse. jd3 12:35 CT Traumagram (Head C Spine CAP wo con) In Process Unspecified. EDMS 13:22 transfer initiated to [facility]. mt 14:23 One on one care from pt arrival to ER till 1400. jd3 14:25 Admin approval received by Savage Garcia to [facility] with Dr. Lundberg to room va 7S1Bed 3. 14:40 [facility] contacted to request transport, 28 min ETA. mt 15:57 Patient transferred, IV remains in place. jd3 Administered Medications: 12:12 Discontinued: Magnesium Sulfate 2 grams IVPB once over 2 hrs jr8 11:15 Drug: NS 0.9% (30 ml/kg) 30 ml/kg Route: IV; Rate: bolus; Site: right femoral; jd3 12:15 Follow up: Response: No adverse reaction; IV Status: Completed infusion jd3 11:15 Drug: Levophed (norepinephrine) (4 mg/250 mL D5W 4 mcg/min Route: IV; Rate: calculated jd3 rate; Site: right femoral; 16:00 Follow up: Response: No adverse reaction; IV Status: Infusion continued upon transfer jd3 11:43 Drug: Magnesium Sulfate 2 grams Route: IVPB; Infused Over: 2 hrs; Site: right femoral; jd3 12:13 Follow up: Response: No adverse reaction; IV Status: Order to discontinue infusion jd3 11:45 Drug: Tylenol Suppository 650 mg Route: HI; jd3 12:45 Follow up: Response: No adverse reaction jd3 12:12 Drug: Ativan (LORazepam) 2 mg Route: IVP; Site: right femoral; jd3 13:10 Follow up: Response: No adverse reaction jd3 13:06 Drug: Rocephin (cefTRIAXone) 2 grams Route: IV; Rate: calculated rate; Site: right jd3 femoral; 14:00 Follow up: Response: No adverse reaction; IV Status: Completed infusion jd3 14:19 Drug: Renan-Synephrine (phenylephrine) 100 mcg/min Route: IV; Rate: calculated rate; jd3 Site: right femoral; 16:00 Follow up: Response: No adverse reaction; IV Status: Infusion continued upon transfer jd3 15:30 Drug: Solu-CORTEF (hyrdoCORTISONE) 100 mg Route: IVP; Site: right femoral; jd3 15:30 Follow up: Response: medication given at transfer jd3 15:55 Drug: Epinephrine Drip - (EPINEPHrine (PF) 4 mg, Sodium Chloride 0.9% 250 ml) Route: jd3 IV; Rate: calculated rate; Site: right femoral; 16:00 Follow up: Response: No adverse reaction; IV Status: Infusion continued upon transfer jd3 15:55 Drug: vancoMYCIN 1 grams Route: IVPB; Infused Over: 2 hrs; Site: right femoral; jd3 16:00 Follow up: Response: No adverse reaction; IV Status: Infusion continued upon transfer jd3 15:58 Not Given (Hemodynamic Parameters): Lasix (furosemide) 40 mg IVP once; give over 2 jd3 minutes Outcome: 14:34 ER care complete, transfer ordered by MD. larson 15:56 Transferred by helicopter to [facility], Transfer form completed. jd3 X-rays sent w/ patient. 15:56 Condition: stable 15:56 Instructed on the need for transfer. 15:58 Patient left the ED. jd3 Signatures: Dispatcher [employer] EDMS Tony Carrillo PA PA jr8 Ernestina Razo RN RN jl7 Jovana Wynne Moriah mt Davies, Jonathon RN RN jd3 Corrections: (The following items were deleted from the chart) 15:57 15:56 Instructed on the need for admit, jd3 jd3 17:04 11:30 Cardiovascular: Rhythm is irregular jd3 jd3
--- NOTE | 2021-01-10 14:35 | EDPHYS ---
Physician Documentation [facility] Name: Michelle Villegas Age: 60 yrs Sex: Female : 1960 Arrival Date: 01/10/2021 Time: 10:50 Bed 4 Private MD: ED Physician Nicolás Amaya HPI: 01/10 13:18 This 60 yrs old Female presents to ER via EMS with complaints of Possible jr8 Overdose. 13:18 Associated signs and symptoms: Pertinent positives: decreased level of consciousness. jr8 Severity of symptoms: At their worst the symptoms were severe in the emergency department the symptoms are unchanged. The patient has not experienced similar symptoms in the past. The patient has not recently seen a physician. of patient stated that patient has been acting appropriate and doing well for her. Stated that last known normal was last night when they went to bed. Went to wake her up this AM and could not wake her up. called EMS at that time. EMS tried narcan as patient had significant respiratory depression and hypotension on scene. Patient known to have chronic pain. On norco and fentanyl. Narcan did not work. Historical: - Allergies: 11:08 No Known Allergies; jl7 - Home Meds: 11:08 cyclobenzaprine 10 mg Oral tab 1 tab 3 times per day [Active]; fentanyl 25 mcg/hr jl7 Topical pt72 1 patch every 72 hours [Active]; Lyrica 150 mg Oral 2 times per day [Active]; nortriptyline 50 mg Oral cap 1 cap 3 times per day [Active]; Percocet 5-325 mg Oral tab three times a day [Active]; topiramate 100 mg Oral tab 2 times per day [Active]; zolpidem 10 mg Oral tab 1 tab once daily [Active]; Zyrtec 10 mg Oral chew 1 tab once daily [Active]; - PMHx: 11:08 Chronic pain; jl7 - Immunization history:: Adult Immunizations unknown. - Social history:: Smoking status: unknown. ROS: 13:18 Unable to obtain ROS due to obtunded state, patient is on ventilator. jr8 Exam: 13:18 Head/Face: Normocephalic, atraumatic. Eyes: Pupils equal round and reactive to light. jr8 Lids and lashes normal. Conjunctiva and sclera are non-icteric and not injected. Cornea within normal limits. Periorbital areas with no swelling, redness, or edema. ENT: Nares patent. No nasal discharge, no septal abnormalities noted. Oropharynx with no redness, swelling, or masses, exudates, or evidence of obstruction, uvula midline. Mucous membranes moist. Neck: Trachea midline, no thyromegaly or masses palpated, and no cervical lymphadenopathy. Supple Cardiovascular: Tachycardic with a normal S1 and S2. No gallops, murmurs, or rubs. Normal PMI, no JVD. 1+ pulses radial and femoral 13:18 Back: burn delgadillo noted from heat pads that patient uses at home Skin: Cool, dry, with mottling MS/ Extremity: Pulses equal. Neurovascular intact. Full, normal range of motion. 13:18 Respiratory: Respiratory rate: 16 on ventilator. Clear bilaterally 13:18 Abdomen/GI: Inspection: distension, that is moderate, Bowel sounds: diminished, in all quadrants, Palpation: soft. 13:18 Neuro: Orientation: unable to test, Mentation: unable to test, Memory: unable to test, seizure activity, is not displayed by the patient, Abnormal movements: there are no abnormal movements. Vital Signs: 11:01 BP 77 / 56; Pulse 136; Resp 29; Pulse Ox 96% ; Weight 72.57 kg; jl7 11:47 BP 90 / 72; Pulse 134; Resp 30; Temp 105; Pulse Ox 98% on ETT vent; jl7 12:00 BP 86 / 63; Pulse 121; Resp 25 A; Pulse Ox 97% on ETT vent; jd3 13:30 BP 87 / 61; Pulse 114; Resp 26 A; Pulse Ox 98% on ETT vent; jd3 14:00 BP 76 / 58; Pulse 114; Resp 24 A; Temp 104.7(C); Pulse Ox 98% on ETT vent; jd3 14:30 BP 80 / 55; Pulse 111; Resp 22 A; Temp 104.5(C); Pulse Ox 97% on ETT vent; jd3 Giancarlo Coma Score: 13:18 Eye Response: none(1). Verbal Response: none(1). Motor Response: none(1). Modifying jr8 Factors: Intubated. Total: 3. Procedures: 11:28 Central Line: the site was prepped with Betadine, in sterile fashion, a triple lumen jr8 catheter was inserted, in the right femoral vein, in 1 attempts. placement was verified, by blood return, the site was dressed with 4X4s, Tegaderm, foam tape, using sterile technique, the patient tolerated the procedure, well. MDM: 10:56 Patient medically screened. jr8 11:28 ED course: Adjusted NG by 4 cm. ETT checked and is satisfactory based on CXR. jr8 13:17 Data reviewed: vital signs, nurses notes, lab test result(s), EKG, radiologic studies, jr8 CT scan, plain films. Data interpreted: Pulse oximetry: on ventilator is 98 %. Interpretation: normal. Counseling: I had a detailed discussion with the patient and/or guardian regarding: the historical points, exam findings, and any diagnostic results supporting the discharge/admit diagnosis, lab results, radiology results, the need to transfer to another facility, for higher level of care. ED course: No ICU available. Patient will be transferred for higher level of care at this point. This was also discussed with at hospital. 14:32 ED course: [facility] accepted patient to MICU. 01/10 10:57 Order name: Basic Metabolic Panel; Complete Time: 12:12 01/10 10:57 Order name: Blood Culture Adult (2) 01/10 10:57 Order name: C-Reactive Protein; Complete Time: 12:12 01/10 10:57 Order name: CBC with Diff; Complete Time: 13:01 01/10 10:57 Order name: CPK; Complete Time: 12:12 01/10 10:57 Order name: Fibrinogen; Complete Time: 12:31 01/10 10:57 Order name: LFT's; Complete Time: 12:12 01/10 10:57 Order name: Lactate; Complete Time: 12:14 01/10 10:57 Order name: Lipase; Complete Time: 12:12 01/10 10:57 Order name: Procalcitonin; Complete Time: 12:17 01/10 10:57 Order name: Protime (+inr); Complete Time: 12:31 01/10 10:57 Order name: Ptt, Activated; Complete Time: 12:31 01/10 10:57 Order name: Troponin (emerg Dept Use Only); Complete Time: 12:12 [facility] 01/10 10:57 Order name: Urine Microscopic Only; Complete Time: 12:31 [facility] 01/10 10:57 Order name: Chest Single View XRAY; Complete Time: 11:27 [facility] 01/10 10:57 Order name: ABG; Complete Time: 13:01 [facility] 01/10 10:57 Order name: BNP; Complete Time: 12:12 [facility] 01/10 10:57 Order name: Magnesium; Complete Time: 12:12 [facility] 01/10 10:57 Order name: UDS; Complete Time: 12:14 [facility] 01/10 11:55 Order name: Urine Dipstick-Ancillary; Complete Time: 11:57 [facility] 01/10 12:15 Order name: CT Traumagram (Head C Spine CAP wo con); Complete Time: 13:01 [facility] 01/10 12:25 Order name: Urine Culture [facility] 01/10 12:40 Order name: Manual Differential; Complete Time: 13: [facility] 01/10 13:09 Order name: SARS-COV-2 RT PCR; Complete Time: 13:14 [facility] 01/10 10:57 Order name: Accucheck; Complete Time: 12:12 [facility] 01/10 10:57 Order name: Cardiac monitoring; Complete Time: 12:12 [facility] 01/10 10:57 Order name: Cath; Complete Time: 12:03 [facility] 01/10 10:57 Order name: EKG - Nurse/Tech; Complete Time: 12:58 [facility] 01/10 10:57 Order name: IV Saline Lock - Large Bore; Complete Time: 12:03 [facility] 01/10 10:57 Order name: Labs collected and sent; Complete Time: 12:03 [facility] 01/10 10:57 Order name: O2 Per Protocol; Complete Time: 12:03 [facility] 01/10 10:57 Order name: O2 Sat Monitoring; Complete Time: 12:03 [facility] 01/10 10:57 Order name: Urine Dipstick-Ancillary (obtain specimen); Complete Time: 12:03 [facility] Administered Medications: 12:12 Discontinued: Magnesium Sulfate 2 grams IVPB once over 2 hrs [facility] 11:15 Drug: NS 0.9% (30 ml/kg) 30 ml/kg Route: IV; Rate: bolus; Site: right femoral; jd3 12:15 Follow up: Response: No adverse reaction; IV Status: Completed infusion jd3 11:15 Drug: Levophed (norepinephrine) (4 mg/250 mL D5W 4 mcg/min Route: IV; Rate: calculated jd3 rate; Site: right femoral; 16:00 Follow up: Response: No adverse reaction; IV Status: Infusion continued upon transfer jd3 11:43 Drug: Magnesium Sulfate 2 grams Route: IVPB; Infused Over: 2 hrs; Site: right femoral; jd3 12:13 Follow up: Response: No adverse reaction; IV Status: Order to discontinue infusion jd3 11:45 Drug: Tylenol Suppository 650 mg Route: CO; jd3 12:45 Follow up: Response: No adverse reaction jd3 12:12 Drug: Ativan (LORazepam) 2 mg Route: IVP; Site: right femoral; jd3 13:10 Follow up: Response: No adverse reaction jd3 13:06 Drug: Rocephin (cefTRIAXone) 2 grams Route: IV; Rate: calculated rate; Site: right [facility] femoral; 14:00 Follow up: Response: No adverse reaction; IV Status: Completed infusion jd3 14:19 Drug: Renan-Synephrine (phenylephrine) 100 mcg/min Route: IV; Rate: calculated rate; jd3 Site: right femoral; 16:00 Follow up: Response: No adverse reaction; IV Status: Infusion continued upon transfer jd3 15:30 Drug: Solu-CORTEF (hyrdoCORTISONE) 100 mg Route: IVP; Site: right femoral; jd3 15:30 Follow up: Response: medication given at transfer jd3 15:55 Drug: Epinephrine Drip - (EPINEPHrine (PF) 4 mg, Sodium Chloride 0.9% 250 ml) Route: jd3 IV; Rate: calculated rate; Site: right femoral; 16:00 Follow up: Response: No adverse reaction; IV Status: Infusion continued upon transfer jd3 15:55 Drug: vancoMYCIN 1 grams Route: IVPB; Infused Over: 2 hrs; Site: right femoral; jd3 16:00 Follow up: Response: No adverse reaction; IV Status: Infusion continued upon transfer jd3 15:58 Not Given (Hemodynamic Parameters): Lasix (furosemide) 40 mg IVP once; give over 2 jd3 minutes Disposition: 18:34 Co-signature as Attending Physician, Nicolás Amaya MD I agree with the assessment and kdr plan of care. Disposition Summary: 01/10/21 14:34 Transfer Ordered Transfer Location: [facility] jr8 Reason: Higher level of care jr8 Condition: Serious jr8 Problem: new jr8 Symptoms: have improved jr8 Accepting Physician: Dr. Lundberg(01/10/21 15:58) jd3 Diagnosis - Severe sepsis with septic shock jr8 Discharge Instructions: - Discharge Summary Sheet jd3 Forms: - Medication Reconciliation Form jr8 - SBAR form jd3 Critical care time excluding procedures: 13:18 Critical care time: Bedside Care: 30 minutes, Consultation: 10 minutes, Family jr8 Intervention: 10 minutes. Total time: 50 minutes Signatures: Dispatcher [employer] EDMS Nicolás Amaya MD MD [facility] Tony Carrillo PA PA jr8 Ernestina Razo, RN RN jl7 Chris Baires RN RN jd3 Corrections: (The following items were deleted from the chart) 12:02 10:58 CORONAVIRUS+MR.LAB.BRZ ordered. EDMS EDMS 12:17 12:07 Head Brain Wo Cont+CT.RAD.BRZ ordered. EDMS EDMS 12:18 12:07 Abdomen Pelvis W Con+CT.RAD.BRZ ordered. EDMS EDMS 15:58 14:34 Dr. Lundberg jr8 jd3
[2021-01-10] MEDS ORDERED: EPINEPHrine 4 MG in NA CHLORIDE 0.9% 250 ML IV PRN (15:10)
[2021-01-10] MEDS ORDERED: HYDROCORTISONE SUC 100 MG INJ ONE (15:34)
[2021-01-10] MEDS ORDERED: VANCOMYCIN 1 GM/VIAL ONE (15:34)
[2021-01-10] MEDS ORDERED: NA CHLORIDE 0.9% 250 ML ONE (15:35)
[2021-01-10] MEDS ORDERED: NA CHLORIDE 0.9% 1,000 ML ONE (16:07)
[2021-01-10 16:37] VITALS: BP 80/55; TEMP 104.5; O2SAT 97
--- NOTE | 2021-01-11 11:48 | EKG ---
Test Date: 2021-01-10 Test Time: 12:52:59 Nursing Service Director: BETZAIDA MEASUREMENT RESULTS: Intervals: Rate: 119 CO: 142 QRSD: 88 QT: 292 QTc: 410 [place]: P: 67 CO: 142 QRS: 127 T: 32 INTERPRETIVE STATEMENTS: Sinus tachycardia Possible Right ventricular hypertrophy Abnormal ECG No previous ECG available for comparison Electronically Signed On 01-11-21 11:47:11 CDT by Bebo Gresham
== END 2021-01-10 15:58 | disposition short-term general hospital (02) ==
LOC: ER 10:49
PROC: 06HT33Z Insertion of Infusion Device into Right Foot Vein, Percutaneous Approach (ICD-10-PCS; principal; 2021-01-10)
DX: R41.82 Altered mental status, unspecified (principal); R65.21 Severe sepsis with septic shock; G89.29 Other chronic pain; Z20.822 Contact with and (suspected) exposure to COVID-19
CPT/HCPCS: 96365; 96367; 96368; 93005; 87040 ×2; 87088; 85025; 87086; 80048; 36415; 85384; 83735; 82550; 85610; 80076; 83605; 85730; 87077; 87186; 84484; 83690; 84145; 83880; 80307; 86140; 70450; 71250; 72125; 71045; 94002; 82805; 96375; 99291; 99292; 96366; 36556; U0003; J3370; J2370; J3475; J0171; J0696; J7060 ×2; J7050 ×2; J7030 ×2; J1720; 81003; 81015; J1940